=== PATIENT | female | born 1970 | race Hispanic/Latino ===

== ENCOUNTER 2016-09-01 18:05 | Emergency (ER) | payer OTHER ==
[~2016-09-01] VITALS: Ht 157.5 cm; Wt 60.9 kg
[2016-09-01 18:08] VITALS: BP 126/77; PULSE 89; RESP 16; O2SAT 100
--- NOTE | 2016-09-01 18:33 | ED.REPORT ---
HPI-General Illness Date of Service Sep 01, 2016 ED Provider: Delfino Olivares MD The patient is a 46 year old female with history of hypertension, asthma, anxiety, and GERD, who presents to the emergency department complaining of a worsening productive cough that began a few days ago. She has also noticed white sputum production, generalized weakness, chest heaviness, difficulty breathing, and a fever. She has chronic lower back pain that has been acting up. She denies pleuritic pain, dysuria or hematuria. No one else around her has been sick. Nursing Notes Stated Complaint: FEVER/DYSPNEA Chief Complaint: Respiratory Distress Nursing Notes Reviewed: Yes Allergies: Coded Allergies: lisinopril (Verified Allergy, Mild, cough, 09/01/16) Scheduled Albuterol HFA (Proair HFA) 8.5 Gm Hfa.aer.ad 2 PUFFS INHALATION Q4H Amlodipine (Amlodipine) 5 Mg Tablet 5 MG PO DAILY Aspirin (Aspirin) 81 Mg Tablet 81 MG PO DAILY Docusate Sodium (Docusate Sodium) 250 Mg Capsule 250 MG PO BID Lactobacillus Acidophilus (Probiotic) 1 Each Capsule 1 EACH PO DAILY Omeprazole (Omeprazole) 40 Mg Capsule.dr 40 MG PO DAILY General Time Seen by MD: 18:29 Chief Complaint Cough Hx Obtained From: Patient Arrived By: Walk-in Sudden in Onset?: No Onset Occurred: 3 days ago Symptom Duration: Since onset Location: : Chest Quality: Heaviness Severity: Current: Mild Severity: Maximum: No pain Recent Healthcare: No recent doctor visit, No recent hospitalization Similar Sx Previous: No Past Medical History Past Medical History Hypertension Sciatica GERD Anxiety Asthma Past Surgical History Cardiac catheterization Family History Noncontributory Social History Drug Use: Denies drug use Other Social History: Good social support, Local resident Ambulatory Status Independent Review of Systems Full Review of Systems Constitutional: Reports: Fever, Weakness - generalized Respiratory: Reports: Prod cough, white, Shortness of breath, Denies: Pleuritic pain Cardiovascular: Reports: Chest pain Female: Denies: Dysuria, Hematuria Musculoskeletal: Reports: Back pain (chronic) Complete sys rev & neg: except as marked. Physical Exam Vital Signs Vital Signs Date Time Temp Pulse Resp B/P Pulse Ox O2 Delivery O2 Flow Rate FiO2 09/01/16 20:05 38.0 74 14 115/64 99 Room Air 09/01/16 18:08 38.9 89 16 126/77 100 Room Air Initial VS: Reviewed Head / Eyes: Atraumatic, Normocephalic, PERRL ENT: Mucous membranes moist, Conjunctiva normal, No scleral icterus Neck: Supple, Non-tender, Full range of motion Abdomen / GI: Soft, Non-tender, No guarding, No rebound, No distention Lymphatic: No lymphadenopathy Extremities: Vascular intact, Neuro intact, No swelling, No tenderness Skin: Warm, Dry, No cyanosis Neurologic: Alert, Oriented, Nonfocal Psychiatric: Mood/affect normal, Behavior normal, Normal thought content General/Constitutional: Awake, Alert, No acute distress, Cooperative Respiratory / Chest: No respiratory distress, No chest tenderness, No chest wall deformity Good air movement bilateral. Slightly coarse, left greater than right. No crackles or wheezing. Cardiovascular: Regular rhythm Heart Rate / Rhythm: Positive: Tachycardia (borderling) Very subtle systolic murmur, heard best at the lower sternal border. Interpretation & Diagnostics Lab Results Interpretation Result Diagram: 09/01/166 09/01/16 1856 Test 09/01/16 18:56 White Blood Count 4.6th/mm3 (3.8-10.1) Red Blood Count 4.43mil/mm3 (3.90-5.20) Hemoglobin 12.5g/dL (12.0-15.6) Hematocrit 38.6% (35.0-46.0) Mean Corpuscular Volume 87.1fL (81-100) Mean Corpuscular Hemoglobin 28.2pg (27.0-35.0) Mean Corpuscular Hemoglobin Concent 32.4% (32.0-37.0) Red Cell Distribution Width 12.3% (12.3-15.4) Platelet Count 179bil/L (150-400) Neutrophils (%) (Auto) 69.5% (40-74) Lymphocytes (%) (Auto) 14.4% (14-46) Monocytes (%) (Auto) 15.3% (4-12) Eosinophils (%) (Auto) 0.4% (0-5) Basophils (%) (Auto) 0.2% (0-3) Sodium Level 133mEq/L (134-144) Potassium Level 4.1mEq/L (3.5-5.2) Chloride Level 95mEq/L (97-108) Carbon Dioxide Level 22mmol/L (18-29) Blood Urea Nitrogen 11mg/dL (6-24) Creatinine 0.76mg/dL (0.57-1.00) Estimat Glomerular Filtration Rate 116mL/min (>59) Glucose Level 84mg/dL (60-99) Lactic Acid Level 1.6mmol/L (0.4-2.0) Calcium Level 9.4mg/dL (8.5-10.1) Magnesium Level 1.8mg/dL (1.6-2.6) Total Bilirubin 0.2mg/dL (0.0-1.2) Aspartate Amino Transf (AST/SGOT) 22U/L (0-50) Alanine Aminotransferase (ALT/SGPT) 21U/L (0-32) Alkaline Phosphatase 70U/L (25-150) Troponin T < 0.010ug/L (0.0-0.011) Total Protein 7.8g/dL (6.4-8.4) Albumin 4.5g/dL (3.4-5.0) ECG Interpretation ECG Interpretation: Normal sinus rhythm Normal axis Normal intervals No ST segment changes No T wave abnormalities Time: 18:34 Interpreted by: ED physician X-Ray Chest Interpretation Chest Xray Interpretation: IMPRESSION: No acute cardiopulmonary findings. Dictated by: Janet Chavez M.D. on 09/01/2016 at 19:23 Interpretation / Wet Read by: Interpret - Radiologist Re-Eval/Medical Decision Med Decision/Clinical Course The patient is a 46-year-old female with a history of asthma though generally in good health who presents with several days of productive cough and fever. Here in the emergency department she is afebrile with stable vital signs and a temperature of 38.9. She is nontoxic in appearance. CXR: Obtained, reviewed and interpreted by myself shows no evidence of acute infiltrates, effusions or pneumothorax. Cardiac and mediastinal silhouette normal. No bony or soft tissue abnormalities. Treated with 975 mg of Tylenol. Thereafter temperature improved to 38.0 Discussed chest x-ray further with radiologist does not feel that any focal consolidation is present. No evidence of acute bacterial pneumonia. Presence of respiratory symptoms in the setting of fever and unremarkable chest x-ray seems most consistent with viral illness. She does have history of asthma she has good air movement throughout both lung morin without any significant wheezing. I do not feel that nebulizer treatments or systemic steroids are immediately indicated. She has no other symptoms suggestive of meningitis, urinary tract infection, soft tissue infection or other immediately concerning cause of her fever. I do not feel that testing for influenza will be particularly useful in her management as she would not benefit much from Tamiflu. She has been prescribed Cheratussin as needed for cough. Discussed possibility of early developing pneumonia and importance of close follow-up with PCP repeat chest x-ray should symptoms worsen or fail to improve. Follow- up and return precautions were reviewed in detail and she was discharged home in good condition. Source of Hx: Old records Time of Eval: 19:42 Re-Evaluation/Progress Note: Rechecked the patient. Discussed results, diagnosis, and plan for discharge. Discussed treatment options. All questions were addressed. Counseled Regarding: Diagnosis, Lab results, Need for follow-up, When/why to return to ED Discharge & Departure Primary Impression: Upper respiratory infection URI type: unspecified URI Qualified Code: J06.9 - Acute upper respiratory infection, unspecified Additional Impressions: Fever Fever type: unspecified Qualified Code: R50.9 - Fever, unspecified History of asthma Disposition: Home Discharge Condition All VS Reviewed: Yes Condition: Stable Patient Instructions: Upper Respiratory Infection (ED) Additional Instructions: Thank you for seeking care at the emergency room. It is difficult for us to make definitive diagnoses in the ED but we believe that you are experiencing an upper respiratory infection. Our primary goal today in the ED was to evaluate you for any life-threatening conditions. Your evaluation was reassuring. You will be discharged with a prescription for cough medicine. You can also take ibuprofen and/or Tylenol as needed. Make sure to rest and drink plenty of fluids. Keep your appointment with your primary doctor tomorrow. You should return to the ED immediately if you develop increased work of breathing, vomiting, chest pain, lightheadedness, weakness or any other concerning signs or symptoms. Thank you for letting us partake in your care today. Scribe Attestation Portions of this note were transcribed by Sandra Santos. I, Dr. Olivares personally performed the history, physical exam and medical decision-making; I reviewed and confirmed the accuracy of the information in the transcribed note. Signed by: Harriet Ferro, 09/01/2016 at 1945. Delfino Olivares MD Sep 01, 2016 18:33 Sandra Santos Sep 01, 2016 19:06
[2016-09-01 19:06] LABS: BASOPHILS % (AUTO) 0.2 % (0-3); EOSINOPHILS % (AUTO) 0.4 % (0-5); MONOCYTES % (AUTO) 15.3 % (4-12); Mean Corpuscular Hemoglobin 28.2 pg (27.0-35.0); Mean Corpuscular Volume 87.1 fL (81-100); NEUTROPHILS % (AUTO) 69.5 % (40-74); Platelet Count 179 bil/L (150-400)
--- NOTE | 2016-09-01 19:24 | DRSVH ---
PROCEDURE: X-RAY CHEST, TWO VIEWS ([id number]) INDICATIONS: shortness of breath fever TECHNIQUE: 2 views of the chest were acquired. COMPARISON: None. FINDINGS: Surgical changes and devices: None. Lungs and pleura: No pleural effusions or pneumothorax. Lungs are clear. Mediastinum: Mediastinal contours are normal. Heart size is normal. Bones and chest wall: No suspicious bony abnormalities. Soft tissues appear unremarkable. IMPRESSION: No acute cardiopulmonary findings. Dictated by: Janet Chavez M.D. on 09/01/2016 at 19:23 Approved by: Janet Chavez M.D. on 09/01/2016 at 19:23
[2016-09-01 19:35] LABS: TROPONIN T < 0.010 ug/L (0.0-0.011)
[2016-09-01 19:42] LABS: Magnesium 1.8 mg/dL (1.6-2.6)
[2016-09-01] MEDS ORDERED: DOCU250C2 PO (19:51)
[2016-09-01] MEDS ORDERED: ALBU8.5H2 INHALATION (19:51)
[2016-09-01] MEDS ORDERED: ASPI-973 PO (19:51)
[2016-09-01] MEDS ORDERED: OMEP40CA36 PO (19:51)
[2016-09-01] MEDS ORDERED: LACT1CAP65 PO (19:51)
[2016-09-01] MEDS ORDERED: AMLO5TAB2 PO (19:51)
[2016-09-01 20:05] VITALS: BP 115/64; PULSE 74; RESP 14; O2SAT 99
== END 2016-09-01 20:06 | disposition home or self-care (01) ==
LOC: SED 18:05
DX: J06.9 Acute upper respiratory infection, unspecified (principal); M54.5 Low back pain; J45.909 Unspecified asthma, uncomplicated; I10 Essential (primary) hypertension; K21.9 Gastro-esophageal reflux disease without esophagitis; Z79.82 Long term (current) use of aspirin; Z88.8 Allergy status to other drugs, medicaments and biological substances